=== PATIENT | male | born 1960 | race Caucasian/White ===

== ENCOUNTER → 2018-03-05 | Outpatient (CLI) | payer OTHER | LOC: M.RAD 15:01 | DX: J43.9 Emphysema, unspecified (principal); J41.1 Mucopurulent chronic bronchitis ==

== ENCOUNTER → 2018-03-24 | Outpatient (CLI) | payer OTHER | LOC: M.CT 08:28 | DX: J43.9 Emphysema, unspecified (principal); D73.89 Other diseases of spleen; R91.1 Solitary pulmonary nodule; E27.9 Disorder of adrenal gland, unspecified; J41.1 Mucopurulent chronic bronchitis ==

== ENCOUNTER → 2018-07-14 | Outpatient (CLI) | payer OTHER ==
[2018-07-14 10:40] LABS: CREATININE 1.1 mg/dL (0.6-1.3)
== END ==
LOC: M.LAB 10:22 → M.CT 11:30
PROVIDERS: Family Medicine
DX: J43.9 Emphysema, unspecified (principal); E07.89 Other specified disorders of thyroid; R91.8 Other nonspecific abnormal finding of lung field

== ENCOUNTER → 2018-08-11 | Outpatient (CLI) | payer OTHER | LOC: M.ULTRA 08-05 10:00 | DX: E04.1 Nontoxic single thyroid nodule (principal) ==